=== PATIENT | female | born 1990 | race American Indian/Alaskan Native ===

== ENCOUNTER 2019-08-24 12:36 | Inpatient (IN) | payer SELFPAY ==
[2019-08-24] MEDS ORDERED: ONDANSETRON 4 MG ODT TAB PO ONE (12:59)
[2019-08-24 13:21] LABS: Bilirubin,Urine NEG (Negative); Blood,Urine SM (Negative); Color,Urine Colorless (Yellow); Mucus,Urine FEW /HPF; Protein,Urine <15 mg/dL mg/dL (Negative); Urobilinogen,Urine < 2.0 mg/dL (<2.0); WBC,Urine < 1.0 /HPF (0.0-6.0)
[2019-08-24 13:23] LABS: HCG Qualitative,Urine Negative (Negative)
[2019-08-24] MEDS ORDERED: ONDANSETRON 4 MG/2 ML INJ IV ONE (13:36)
[2019-08-24] MEDS ORDERED: FAMOTIDINE 20 MG/2 ML INJ IV ONE (13:36)
[2019-08-24] MEDS ORDERED: SODIUM CHLORIDE 0.9% 1000 ML 1,000 ML IV ONE ×2 (13:36→14:50)
[2019-08-24 14:00] LABS: Basophils # (Auto) 0.1 K/mm3 (0.0-0.1); Basophils % (Auto) 0.5 % (0.0-1.8); Eosinophils % (Auto) 0.2 % (0.0-4.3); Hematocrit 44.7 % (30.3-42.9); Hemoglobin 14.5 gm/dl (10.1-14.3); Lymphocytes # (Auto) 1.8 K/mm3 (1.2-5.4); Lymphocytes % (Auto) 17.4 % (13.4-35.0); Mean Corpuscular HGB Conc 32 % (30-34); Mean Corpuscular Volume 84 fl (79-97); Monocytes # (Auto) 0.6 K/mm3 (0.0-0.8); Platelet Count 379 K/mm3 (140-440); Red Blood Count 5.35 M/mm3 (3.65-5.03); Red Cell Distribution Width 14.1 % (13.2-15.2)
[2019-08-24 14:19] LABS: Alanine Aminotransferase 24 units/L (7-56); Albumin 4.5 g/dL (3.9-5); BUN/Creatinine Ratio 16; Blood Urea Nitrogen 14 mg/dL (7-17); Calcium 9.9 mg/dL (8.4-10.2); Hemolysis Index 9
[2019-08-24] MEDS ORDERED: DEXTROSE 50% IN WATER (25GM) 50 ML SYRINGE IV PRN ×2 (14:50→22:05)
[2019-08-24] MEDS ORDERED: INSULIN REGULAR, HUMAN 100 UNITS in SODIUM CHLORIDE 0.9% 99 ML IV SCH ×2 (15:00→23:00)
--- NOTE | 2019-08-24 15:25 | Emergency Department Report ---
ED General Adult HPI - General Chief complaint: Urogenital-Female Stated complaint: DEHYDRATED/URINARY FREQUENCY Time Seen by Provider: 08/24/19 13:34 Source: patient Mode of arrival: Ambulatory Limitations: No Limitations - History of Present Illness Initial comments: Patient is a 29-year-old F [place] female who states she had gestational diabetes but otherwise has no no past medical problems who is complaining of some increased thirst and urination for approximately a week. Patient denies nausea vomiting diarrhea but does have some generalized abdominal cramps. Patient has had increased thirst. Patient was diagnosed a week ago with a mild UTI was prescribed Macrobid but states she has not been using it because of being nauseous after taking that medication. Patient states she has some dizziness as well. She denies fever cough congestion sore throat at this time. - Related Data Allergies Allergy/AdvReac Type Severity Reaction Status Date / Time No Known Allergies Allergy Verified 08/24/19 12:45 ED Review of Systems ROS: Stated complaint: DEHYDRATED/URINARY FREQUENCY Other details as noted in HPI Comment: All other systems reviewed and negative ED Past Medical Hx - Past Medical History Previous Medical History?: No - Surgical History Past Surgical History?: Yes Additional Surgical History: , tubal ligation - Social History Smoking Status: Never Smoker Substance Use Type: None ED Physical Exam - General Limitations: No Limitations General appearance: alert, in no apparent distress - Head Head exam: Present: atraumatic, normocephalic - Eye Eye exam: Present: normal appearance, PERRL, EOMI - ENT ENT exam: Present: mucous membranes moist - Neck Neck exam: Present: normal inspection - Respiratory Respiratory exam: Present: normal lung sounds bilaterally. Absent: respiratory distress, wheezes, rales, rhonchi - Cardiovascular Cardiovascular Exam: Present: regular rate, normal rhythm. Absent: systolic murmur, diastolic murmur, rubs, gallop - GI/Abdominal GI/Abdominal exam: Present: soft, normal bowel sounds. Absent: distended, tenderness, guarding, rebound - Extremities Exam Extremities exam: Present: normal inspection - Back Exam Back exam: Present: normal inspection - Neurological Exam Neurological exam: Present: alert, oriented X3 - Psychiatric Psychiatric exam: Present: normal affect, normal mood - Skin Skin exam: Present: warm, dry, intact, normal color. Absent: rash ED Course Vital Signs 08/24/19 12:45 Temperature 98.1 F Pulse Rate 104 H Respiratory 22 Rate Blood Pressure 149/93 O2 Sat by Pulse 100 Oximetry ED Medical Decision Making - Lab Data Result diagrams: 08/24/19 13:40 08/24/19 13:40 Lab Results 08/24/19 08/24/19 08/24/19 Range/Units 13:03 13:10 13:33 WBC (4.5-11.0) K/mm3 RBC (3.65-5.03) M/mm3 Hgb (10.1-14.3) gm/dl Hct (30.3-42.9) % MCV (79-97) fl MCH (28-32) pg MCHC (30-34) % RDW (13.2-15.2) % Plt Count (140-440) K/mm3 Lymph % (Auto) (13.4-35.0) % [place] % (Auto) (0.0-7.3) % Eos % (Auto) (0.0-4.3) % Baso % (Auto) (0.0-1.8) % Lymph # (1.2-5.4) K/mm3 [place] # (0.0-0.8) K/mm3 Eos # (0.0-0.4) K/mm3 Baso # (0.0-0.1) K/mm3 Seg Neutrophils % (40.0-70.0) % Seg Neutrophils # (1.8-7.7) K/mm3 VBG pH 7.146 L* (7.320-7.420) Sodium (137-145) mmol/L Potassium (3.6-5.0) mmol/L Chloride (98-107) mmol/L Carbon Dioxide (22-30) mmol/L Anion Gap mmol/L BUN (7-17) mg/dL Creatinine (0.7-1.2) mg/dL Estimated GFR ml/min BUN/Creatinine Ratio % Glucose (65-100) mg/dL POC Glucose > 500 H (70-105) Ketones Quantitative (Negative) Calcium (8.4-10.2) mg/dL Total Bilirubin (0.1-1.2) mg/dL AST (5-40) units/L ALT (7-56) units/L Alkaline Phosphatase (35-129) units/L Total Protein (6.3-8.2) g/dL Albumin (3.9-5) g/dL Albumin/Globulin Ratio % Urine Color Colorless (Yellow) Urine Turbidity Clear (Clear) Urine pH 5.0 (5.0-7.0) Ur Specific [place] 1.029 (1.003-1.030) Urine Protein <15 mg/dl (Negative) mg/dL Urine Glucose (UA) >=500 (Negative) mg/dL Urine Ketones 80 (Negative) mg/dL Urine Blood Sm (Negative) Urine Nitrite Neg (Negative) Urine Bilirubin Neg (Negative) Urine Urobilinogen < 2.0 (<2.0) mg/dL Ur Leukocyte Esterase Neg (Negative) Urine WBC (Auto) < 1.0 (0.0-6.0) /HPF Urine RBC (Auto) 1.0 (0.0-6.0) /HPF U Epithel Cells (Auto) < 1.0 (0-13.0) /HPF Urine Mucus Few /HPF Urine HCG, Qual Negative (Negative) 08/24/19 08/24/19 Range/Units 13:40 13:40 WBC 10.3 (4.5-11.0) K/mm3 RBC 5.35 H (3.65-5.03) M/mm3 Hgb 14.5 H (10.1-14.3) gm/dl Hct 44.7 H (30.3-42.9) % MCV 84 (79-97) fl MCH 27 L (28-32) pg MCHC 32 (30-34) % RDW 14.1 (13.2-15.2) % Plt Count 379 (140-440) K/mm3 Lymph % (Auto) 17.4 (13.4-35.0) % [place] % (Auto) 6.0 (0.0-7.3) % Eos % (Auto) 0.2 (0.0-4.3) % Baso % (Auto) 0.5 (0.0-1.8) % Lymph # 1.8 (1.2-5.4) K/mm3 [place] # 0.6 (0.0-0.8) K/mm3 Eos # 0.0 (0.0-0.4) K/mm3 Baso # 0.1 (0.0-0.1) K/mm3 Seg Neutrophils % 75.9 H (40.0-70.0) % Seg Neutrophils # 7.8 H (1.8-7.7) K/mm3 VBG pH (7.320-7.420) Sodium 132 L (137-145) mmol/L Potassium 4.1 (3.6-5.0) mmol/L Chloride 97.0 L (98-107) mmol/L Carbon Dioxide 12 L (22-30) mmol/L Anion Gap 27 mmol/L BUN 14 (7-17) mg/dL Creatinine 0.9 (0.7-1.2) mg/dL Estimated GFR > 60 ml/min BUN/Creatinine Ratio 16 % Glucose 625 H* (65-100) mg/dL POC Glucose (70-105) Ketones Quantitative Large (Negative) Calcium 9.9 (8.4-10.2) mg/dL Total Bilirubin 0.30 (0.1-1.2) mg/dL AST 13 (5-40) units/L ALT 24 (7-56) units/L Alkaline Phosphatase 118 (35-129) units/L Total Protein 9.0 H (6.3-8.2) g/dL Albumin 4.5 (3.9-5) g/dL Albumin/Globulin Ratio 1.0 % Urine Color (Yellow) Urine Turbidity (Clear) Urine pH (5.0-7.0) Ur Specific [place] (1.003-1.030) Urine Protein (Negative) mg/dL Urine Glucose (UA) (Negative) mg/dL Urine Ketones (Negative) mg/dL Urine Blood (Negative) Urine Nitrite (Negative) Urine Bilirubin (Negative) Urine Urobilinogen (<2.0) mg/dL Ur Leukocyte Esterase (Negative) Urine WBC (Auto) (0.0-6.0) /HPF Urine RBC (Auto) (0.0-6.0) /HPF U Epithel Cells (Auto) (0-13.0) /HPF Urine Mucus /HPF Urine HCG, Qual (Negative) - Medical Decision Making Patient's laboratory studies showed the patient is acidotic. Blood glucose is 625. Patient appears to have new onset diabetes with early DKA. Patient star amadou on fluids and insulin drip. Critical care attestation.: If time is entered above; I have spent that time in minutes in the direct care of this critically ill patient, excluding procedure time. ED Disposition Clinical Impression: Diabetes mellitus, new onset DKA (diabetic ketoacidoses) Qualifiers: Diabetes mellitus type: other specified (including BOB) Diabetes mellitus complication detail: without coma Qualified Code(s): E13.10 - Other specified diabetes mellitus with ketoacidosis without coma Disposition: OP ADMIT IP TO THIS HOSP Is pt being admited?: Yes Does the pt Need Aspirin: No Condition: Stable Time of Disposition: 15:27
[2019-08-24 16:50] LABS: BUN/Creatinine Ratio 16; Blood Urea Nitrogen 13 mg/dL (7-17); Calcium 8.6 mg/dL (8.4-10.2); Hemolysis Index 123
--- NOTE | 2019-08-24 17:19 | History and Physical Report ---
History of Present Illness Date of examination: 08/24/19 Date of admission: 08/24/19 15:28 Chief complaint: Generalized weakness and polyuria and excessive thirst for 1 week History of present illness: 29-year-old female with history of gestational diabetes but no diabetes on a regular basis complains of increasing thirst and polyuria. No nausea vomiting or diarrhea. Patient has generalized weakness. And blurred vision. Patient had a UTI recently and was prescribed Macrobid. In the emergency room patient was found to have high blood glucose levels uncontrolled hence admission. No fever or chills. Past Medical History Previous Medical History?: No Surgical History Past Surgical History?: Yes Additional Surgical History: , tubal ligation Social History Smoking Status: Never Smoker Substance Use Type: None family history HTN Review of Systems ROS: Constitutional no weight loss or weight gain no fever or chills Generalized weakness polyuria polydipsia and polyphagia HEENT no sore throat no post nasal drip no diplopia Neck no neck stiffness no lymph gland enlargement Chest and lungs no shortness of breath cough or wheezing CVS no chest pain no diaphoresis no palpitations GI no nausea no vomiting no diarrhea Genitourinary system no dysuria no flank pain Musculoskeletal system no muscle pains no joint pains [employer] no syncope no seizures Skin no rash no itching Psychiatric no depression no homicidal or suicidal tendencies Hematologic no lymphedema or bruising Endocrine polydipsia polyphagia and polyuria Medications and Allergies Allergies Allergy/AdvReac Type Severity Reaction Status Date / Time No Known Allergies Allergy Verified 08/24/19 12:45 Home Medications Medication Instructions Recorded Confirmed Last Taken Type No Known Home Medications [No 08/24/19 08/24/19 Unknown History Reported Home Medications] Active Meds: Active Medications Dextrose (D50w (25gm) Syringe) 0 ml IV Q30MIN PRN; Protocol PRN Reason: Hypoglycemia Insulin Human Regular 100 (units/ Sodium Chloride) 100 mls @ 1 mls/hr IV TITR YAEL; Protocol Last Titration: 08/24/19 16:29 Dose: 7 units/hr, 7 mls/hr Documented by: Potassium Chloride/Dextrose/Sod Cl (D5w/0.45% Nacl/Kcl 20 Meq) 20 meq in 1,000 mls @ 125 mls/hr IV DIRECT YAEL Exam - Constitutional Vitals: Temp Pulse Resp BP Pulse Ox 98.1 F 104 H 22 131/72 99 08/24/19 12:45 08/24/19 12:45 08/24/19 12:45 08/24/19 15:45 08/24/19 15:45 General appearance: Present: no acute distress, well-nourished - EENT Eyes: Present: PERRL ENT: hearing intact, clear oral mucosa - Neck Neck: Present: supple, normal ROM - Respiratory Respiratory effort: normal Respiratory: bilateral: CTA - Cardiovascular Heart Sounds: Present: S1 & S2. Absent: rub, click - Extremities Extremities: pulses symmetrical, No edema Peripheral Pulses: within normal limits - Abdominal General gastrointestinal: Present: soft, non-tender, non-distended, normal bowel sounds Female genitourinary: Present: normal - Integumentary Integumentary: Present: clear, warm, dry - Musculoskeletal Musculoskeletal: gait normal, strength equal bilaterally - Psychiatric Psychiatric: appropriate mood/affect, intact judgment & insight - Neurologic Neurologic: CNII-XII intact, moves all extremities - Allied Health Allied health notes reviewed: nursing, case management Results - Labs CBC & Chem 7: 08/25/19 02:27 08/25/19 15:21 Labs: Laboratory Last Values WBC 10.3 K/mm3 (4.5-11.0) 08/24/19 13:40 RBC 5.35 M/mm3 (3.65-5.03) H 08/24/19 13:40 Hgb 14.5 gm/dl (10.1-14.3) H 08/24/19 13:40 Hct 44.7 % (30.3-42.9) H 08/24/19 13:40 MCV 84 fl (79-97) 08/24/19 13:40 MCH 27 pg (28-32) L 08/24/19 13:40 MCHC 32 % (30-34) 08/24/19 13:40 RDW 14.1 % (13.2-15.2) 08/24/19 13:40 Plt Count 379 K/mm3 (140-440) 08/24/19 13:40 Lymph % (Auto) 17.4 % (13.4-35.0) 08/24/19 13:40 [place] % (Auto) 6.0 % (0.0-7.3) 08/24/19 13:40 Eos % (Auto) 0.2 % (0.0-4.3) 08/24/19 13:40 Baso % (Auto) 0.5 % (0.0-1.8) 08/24/19 13:40 Lymph # 1.8 K/mm3 (1.2-5.4) 08/24/19 13:40 [place] # 0.6 K/mm3 (0.0-0.8) 08/24/19 13:40 Eos # 0.0 K/mm3 (0.0-0.4) 08/24/19 13:40 Baso # 0.1 K/mm3 (0.0-0.1) 08/24/19 13:40 Seg Neutrophils % 75.9 % (40.0-70.0) H 08/24/19 13:40 Seg Neutrophils # 7.8 K/mm3 (1.8-7.7) H 08/24/19 13:40 VBG pH 7.146 (7.320-7.420) L* 08/24/19 13:33 Sodium 135 mmol/L (137-145) L 08/24/19 15:42 Potassium 5.0 mmol/L (3.6-5.0) D 08/24/19 15:42 Chloride 102.4 mmol/L (98-107) 08/24/19 15:42 Carbon Dioxide 11 mmol/L (22-30) L 08/24/19 15:42 Anion Gap 27 mmol/L 08/24/19 15:42 BUN 13 mg/dL (7-17) 08/24/19 15:42 Creatinine 0.8 mg/dL (0.7-1.2) 08/24/19 15:42 Estimated GFR > 60 ml/min 08/24/19 15:42 BUN/Creatinine Ratio 16 % 08/24/19 15:42 Glucose 450 mg/dL (65-100) H 08/24/19 15:42 POC Glucose 357 (70-105) H 08/24/19 16:40 Ketones Quantitative Large (Negative) 08/24/19 13:40 Calcium 8.6 mg/dL (8.4-10.2) 08/24/19 15:42 Phosphorus 3.20 mg/dL (2.5-4.5) 08/24/19 15:42 Magnesium 1.90 mg/dL (1.7-2.3) 08/24/19 15:42 Total Bilirubin 0.30 mg/dL (0.1-1.2) 08/24/19 13:40 AST 13 units/L (5-40) 08/24/19 13:40 ALT 24 units/L (7-56) 08/24/19 13:40 Alkaline Phosphatase 118 units/L (35-129) 08/24/19 13:40 Total Protein 9.0 g/dL (6.3-8.2) H 08/24/19 13:40 Albumin 4.5 g/dL (3.9-5) 08/24/19 13:40 Albumin/Globulin Ratio 1.0 % 08/24/19 13:40 Urine Color Colorless (Yellow) 08/24/19 13:10 Urine Turbidity Clear (Clear) 08/24/19 13:10 Urine pH 5.0 (5.0-7.0) 08/24/19 13:10 Ur Specific [place] 1.029 (1.003-1.030) 08/24/19 13:10 Urine Protein <15 mg/dl mg/dL (Negative) 08/24/19 13:10 Urine Glucose (UA) >=500 mg/dL (Negative) 08/24/19 13:10 Urine Ketones 80 mg/dL (Negative) 08/24/19 13:10 Urine Blood Sm (Negative) 08/24/19 13:10 Urine Nitrite Neg (Negative) 08/24/19 13:10 Urine Bilirubin Neg (Negative) 08/24/19 13:10 Urine Urobilinogen < 2.0 mg/dL (<2.0) 08/24/19 13:10 Ur Leukocyte Esterase Neg (Negative) 08/24/19 13:10 Urine WBC (Auto) < 1.0 /HPF (0.0-6.0) 08/24/19 13:10 Urine RBC (Auto) 1.0 /HPF (0.0-6.0) 08/24/19 13:10 U Epithel Cells (Auto) < 1.0 /HPF (0-13.0) 08/24/19 13:10 Urine Mucus Few /HPF 08/24/19 13:10 Urine HCG, Qual Negative (Negative) 08/24/19 13:10 [place]/IV: IV Catheter Type [Right INT / Saline Lock Forearm] Assessment and Plan Advance Directives: Yes (Full code) VTE prophylaxis?: Chemical Plan of care discussed with patient/family: Yes - Patient Problems (1) Uncontrolled diabetes mellitus Current Visit: Yes Status: Acute Qualifiers: Diabetes mellitus type: other specified (including BOB) Plan to address problem: New onset IV fluids Frequent Accu-Cheks High-dose sliding scale Initiated on insulin 70/30 20 units twice a day Diabetes education (2) Hyponatremia Current Visit: Yes Status: Acute Plan to address problem: Should correct with IV fluids (3) DVT prophylaxis Current Visit: Yes Status: Acute Plan to address problem: On heparin and GI prophylaxis
[2019-08-24] MEDS ORDERED: D5W/0.45% NACL/KCL 20 MEQ 20 MEQ/1,000 ML BAG IV ONE (19:37)
[2019-08-24] MEDS: D5W/0.45% NACL/KCL 20 MEQ 20 MEQ/1,000 ML BAG IV SCH (19:37)
[2019-08-24 20:22] LABS: BUN/Creatinine Ratio 14; Blood Urea Nitrogen 11 mg/dL (7-17); Calcium 8.8 mg/dL (8.4-10.2); Hemolysis Index 13
[2019-08-24] MEDS ORDERED: ONDANSETRON 4 MG/2 ML INJ IV PRN (22:04)
[2019-08-24] MEDS ORDERED: HYDROmorphone 1 MG/1 ML INJ IV PRN (22:04)
[2019-08-24] MEDS ORDERED: ACETAMINOPHEN 325 MG TAB PO PRN (22:04)
[2019-08-24] MEDS ORDERED: MORPHINE 2 MG/1 ML INJ IV PRN (22:04)
[2019-08-24] MEDS ORDERED: POTASSIUM CHLORIDE 10 MEQ 10 MEQ/100 ML BAG IV SCH ×2 (23:00)
[2019-08-25 00:15] LABS: BUN/Creatinine Ratio 13; Blood Urea Nitrogen 9 mg/dL (7-17); Calcium 8.5 mg/dL (8.4-10.2); Hemolysis Index 12
[2019-08-25 02:53] LABS: Basophils % (Auto) 0.6 % (0.0-1.8); Eosinophils # (Auto) 0.1 K/mm3 (0.0-0.4); Eosinophils % (Auto) 1.3 % (0.0-4.3); Hematocrit 38.3 % (30.3-42.9); Hemoglobin 12.5 gm/dl (10.1-14.3); Lymphocytes # (Auto) 2.8 K/mm3 (1.2-5.4); Mean Corpuscular HGB Conc 33 % (30-34); Mean Corpuscular Volume 82 fl (79-97); Monocytes # (Auto) 0.7 K/mm3 (0.0-0.8); Monocytes % (Auto) 8.3 % (0.0-7.3); Platelet Count 297 K/mm3 (140-440); Red Blood Count 4.66 M/mm3 (3.65-5.03); Red Cell Distribution Width 13.7 % (13.2-15.2)
[2019-08-25 03:12] LABS: BUN/Creatinine Ratio 11; Blood Urea Nitrogen 8 mg/dL (7-17); Calcium 8.1 mg/dL (8.4-10.2); Hemolysis Index 4
[2019-08-25 03:13] LABS: Alanine Aminotransferase 18 units/L (7-56); Albumin 3.9 g/dL (3.9-5); BUN/Creatinine Ratio 11; Blood Urea Nitrogen 8 mg/dL (7-17); Calcium 8.1 mg/dL (8.4-10.2); Hemolysis Index 47
[2019-08-25] MEDS: D5W/0.45% NACL/KCL 20 MEQ 20 MEQ/1,000 ML BAG IV SCH (03:20)
[2019-08-25 05:56] LABS: BUN/Creatinine Ratio 10; Blood Urea Nitrogen 7 mg/dL (7-17); Calcium 7.9 mg/dL (8.4-10.2); Hemolysis Index 16
[2019-08-25 07:52] LABS: BUN/Creatinine Ratio 10; Blood Urea Nitrogen 7 mg/dL (7-17); Hemolysis Index 15
[2019-08-25] MEDS ORDERED: POTASSIUM CHLORIDE ER 20 MEQ TAB PO ONE (08:00)
[2019-08-25] MEDS ORDERED: DEXTROSE 50% IN WATER (25GM) 50 ML SYRINGE IV PRN (11:27)
[2019-08-25] MEDS ORDERED: INSULIN NPH, HUMAN 100 UNIT/1 ML SUB-Q ONE (12:00)
[2019-08-25] MEDS: INSULIN REGULAR, HUMAN 100 UNITS/1 ML SUB-Q SCH ×2 (12:34→17:43)
[2019-08-25 16:07] LABS: BUN/Creatinine Ratio 9; Blood Urea Nitrogen 8 mg/dL (7-17); Calcium 8.6 mg/dL (8.4-10.2); Hemolysis Index 10
[2019-08-25] MEDS: INSULIN NPH, HUMAN 100 UNIT/1 ML SUB-Q SCH (17:43)
--- NOTE | 2019-08-25 20:12 | Progress Note ---
Assessment and Plan - Patient Problems (1) Uncontrolled diabetes mellitus Current Visit: Yes Status: Acute Qualifiers: Diabetes mellitus type: other specified (including BOB) Plan to address problem: New onset IV fluids Frequent Accu-Cheks High-dose sliding scale Initiated on insulin 70/30 20 units twice a day Diabetes education (2) Hyponatremia Current Visit: Yes Status: Acute Plan to address problem: Should correct with IV fluids (3) DVT prophylaxis Current Visit: Yes Status: Acute Plan to address problem: On heparin and GI prophylaxis Subjective Date of service: 08/25/19 Principal diagnosis: New onset diabetes and uncontrolled diabetes Interval history: Symptomatically better Objective - Constitutional Vitals: Vital Signs - 12hr 08/25/19 08/25/19 08/25/19 09:00 10:00 11:01 Temperature Pulse Rate 103 H 98 H 102 H Pulse Rate [ From Monitor] Respiratory 24 22 27 H Rate Blood Pressure 118/64 90/55 90/55 O2 Sat by Pulse 100 100 100 Oximetry 08/25/19 08/25/19 08/25/19 12:00 12:01 13:01 Temperature Pulse Rate 94 H 98 H 100 H Pulse Rate [ 86 From Monitor] Respiratory 20 24 26 H Rate Blood Pressure 90/55 O2 Sat by Pulse 100 100 100 Oximetry 08/25/19 15:38 Temperature 98.4 F Pulse Rate 101 H Pulse Rate [ From Monitor] Respiratory 20 Rate Blood Pressure 109/63 O2 Sat by Pulse 100 Oximetry General appearance: Present: no acute distress, well-nourished - EENT Eyes: PERRL, EOM intact ENT: hearing intact, clear oral mucosa Ears: bilateral: normal - Neck Neck: supple, normal ROM - Respiratory Respiratory effort: normal Respiratory: bilateral: CTA - Breasts Breasts: normal - Cardiovascular Rhythm: regular Heart Sounds: Present: S1 & S2. Absent: gallop, rub Extremities: pulses intact, No edema, normal color, Full ROM - Gastrointestinal General gastrointestinal: Present: soft, non-tender, non-distended, normal bowel sounds - Genitourinary Female genitourinary: normal - Integumentary Integumentary: clear, warm, dry - Musculoskeletal Musculoskeletal: 1, strength equal bilaterally - Neurologic Neurologic: moves all extremities - Psychiatric Psychiatric: memory intact, appropriate mood/affect, intact judgment & insight - Labs CBC & Chem 7: 08/25/19 02:27 08/25/19 15:21 Labs: Abnormal lab results 08/24/19 08/24/19 08/24/19 Range/Units 19:48 21:04 22:23 MCH (28-32) pg [place] % (Auto) (0.0-7.3) % Sodium 136 L (137-145) mmol/L Potassium (3.6-5.0) mmol/L Carbon Dioxide 13 L (22-30) mmol/L Glucose 220 H (65-100) mg/dL POC Glucose 182 H 210 H (70-105) Hemoglobin A1c (4-6) % Calcium (8.4-10.2) mg/dL Phosphorus (2.5-4.5) mg/dL 08/24/19 08/24/19 08/24/19 Range/Units 23:15 23:32 23:32 MCH (28-32) pg [place] % (Auto) (0.0-7.3) % Sodium (137-145) mmol/L Potassium (3.6-5.0) mmol/L Carbon Dioxide 14 L (22-30) mmol/L Glucose 198 H (65-100) mg/dL POC Glucose 204 H (70-105) Hemoglobin A1c 9.7 H (4-6) % Calcium (8.4-10.2) mg/dL Phosphorus (2.5-4.5) mg/dL 08/24/19 08/25/19 08/25/19 Range/Units 23:32 00:14 01:19 MCH (28-32) pg [place] % (Auto) (0.0-7.3) % Sodium (137-145) mmol/L Potassium (3.6-5.0) mmol/L Carbon Dioxide (22-30) mmol/L Glucose (65-100) mg/dL POC Glucose 202 H 190 H (70-105) Hemoglobin A1c (4-6) % Calcium (8.4-10.2) mg/dL Phosphorus 1.60 L D (2.5-4.5) mg/dL 08/25/19 08/25/19 08/25/19 Range/Units 02:22 02:27 02:27 MCH 27 L (28-32) pg [place] % (Auto) 8.3 H (0.0-7.3) % Sodium 135 L (137-145) mmol/L Potassium 3.3 L (3.6-5.0) mmol/L Carbon Dioxide 15 L (22-30) mmol/L Glucose 206 H (65-100) mg/dL POC Glucose 182 H (70-105) Hemoglobin A1c (4-6) % Calcium 8.1 L (8.4-10.2) mg/dL Phosphorus (2.5-4.5) mg/dL 08/25/19 08/25/19 08/25/19 Range/Units 02:27 03:18 04:22 MCH (28-32) pg [place] % (Auto) (0.0-7.3) % Sodium 135 L (137-145) mmol/L Potassium (3.6-5.0) mmol/L Carbon Dioxide 14 L (22-30) mmol/L Glucose 204 H (65-100) mg/dL POC Glucose 209 H 177 H (70-105) Hemoglobin A1c (4-6) % Calcium 8.1 L (8.4-10.2) mg/dL Phosphorus (2.5-4.5) mg/dL 08/25/19 08/25/19 08/25/19 Range/Units 05:02 05:26 06:08 MCH (28-32) pg [place] % (Auto) (0.0-7.3) % Sodium 134 L (137-145) mmol/L Potassium 3.2 L (3.6-5.0) mmol/L Carbon Dioxide 17 L (22-30) mmol/L Glucose 186 H (65-100) mg/dL POC Glucose 168 H 179 H (70-105) Hemoglobin A1c (4-6) % Calcium 7.9 L (8.4-10.2) mg/dL Phosphorus (2.5-4.5) mg/dL 08/25/19 08/25/19 08/25/19 Range/Units 07:11 07:12 08:30 MCH (28-32) pg [place] % (Auto) (0.0-7.3) % Sodium 136 L (137-145) mmol/L Potassium 3.5 L (3.6-5.0) mmol/L Carbon Dioxide 16 L (22-30) mmol/L Glucose 193 H (65-100) mg/dL POC Glucose 192 H 141 H (70-105) Hemoglobin A1c (4-6) % Calcium 8.0 L (8.4-10.2) mg/dL Phosphorus (2.5-4.5) mg/dL 08/25/19 08/25/19 08/25/19 Range/Units 09:25 10:25 11:31 MCH (28-32) pg [place] % (Auto) (0.0-7.3) % Sodium (137-145) mmol/L Potassium (3.6-5.0) mmol/L Carbon Dioxide (22-30) mmol/L Glucose (65-100) mg/dL POC Glucose 141 H 170 H 178 H (70-105) Hemoglobin A1c (4-6) % Calcium (8.4-10.2) mg/dL Phosphorus (2.5-4.5) mg/dL 08/25/19 08/25/19 Range/Units 15:21 16:57 MCH (28-32) pg [place] % (Auto) (0.0-7.3) % Sodium 135 L (137-145) mmol/L Potassium (3.6-5.0) mmol/L Carbon Dioxide 17 L (22-30) mmol/L Glucose 352 H (65-100) mg/dL POC Glucose 304 H (70-105) Hemoglobin A1c (4-6) % Calcium (8.4-10.2) mg/dL Phosphorus (2.5-4.5) mg/dL
[2019-08-25] MEDS: INSULIN LISPRO 100 UNIT/ML SUB-Q SCH (22:22)
[2019-08-25 23:17] LABS: BUN/Creatinine Ratio 11; Blood Urea Nitrogen 9 mg/dL (7-17); Calcium 8.5 mg/dL (8.4-10.2); Hemolysis Index 10
[2019-08-26] MEDS: INSULIN REGULAR, HUMAN 100 UNITS/1 ML SUB-Q SCH (03:14)
[2019-08-26] MEDS: INSULIN LISPRO 100 UNIT/ML SUB-Q SCH ×3 (09:16→18:07)
[2019-08-26] MEDS: INSULIN NPH, HUMAN 100 UNIT/1 ML SUB-Q SCH ×2 (09:33→18:08)
[2019-08-26 16:39] VITALS: BP 129/75
--- NOTE | 2019-08-26 17:54 | Discharge Summary ---
Providers - Providers Date of Admission: 08/24/19 15:28 Date of discharge: 08/26/19 Attending physician: ALISHA Boswell.A Primary care physician: NENA RUCKER MD Hospitalization Condition: Stable Hospital course: Patient is admitted for DKA. Was on DKA protocol and IV insulin and IV fluids. Patient responded well patient was educated about diabetes or administering insulin. And out adjust dosage. Patient has to lose weight. (1) DKA Current Visit: Yes Status: Acute Qualifiers: Diabetes mellitus type: other specified (including BOB) Plan to address problem: New onset IV fluids Frequent Accu-Cheks High-dose sliding scale Being discharged on on insulin 70/30 30 units twice a day Diabetes education (2) Hyponatremia Current Visit: Yes Status: Acute Plan to address problem: Corrected patient ( 3.)Morbid obesity counseled to lose weight and see bariatric surgeon because her BMI is around 55 Disposition: DC-01 TO HOME OR SELFCARE Core Measure Documentation - Palliative Care Palliative Care/ Comfort Measures: Not Applicable - Core Measures Any of the following diagnoses?: none Exam - Constitutional Vitals: Temp Pulse Resp BP Pulse Ox 98.2 F 102 H 18 129/75 99 08/26/19 14:37 08/26/19 14:37 08/26/19 14:37 08/26/19 14:37 08/26/19 14:37 General appearance: Present: no acute distress, well-nourished - EENT Eyes: Present: PERRL ENT: hearing intact, clear oral mucosa - Neck Neck: Present: supple, normal ROM - Respiratory Respiratory effort: normal Respiratory: bilateral: CTA - Cardiovascular Heart Sounds: Present: S1 & S2. Absent: rub, click - Extremities Extremities: pulses symmetrical, No edema Peripheral Pulses: within normal limits - Abdominal General gastrointestinal: Present: soft, non-tender, non-distended, normal bowel sounds Female genitourinary: Present: normal - Integumentary Integumentary: Present: clear, warm, dry - Musculoskeletal Musculoskeletal: gait normal, strength equal bilaterally - Psychiatric Psychiatric: appropriate mood/affect, intact judgment & insight - Neurologic Neurologic: CNII-XII intact, moves all extremities Plan Activity: no restrictions Diet: diabetic Follow up with: NENA RUCKER MD [Primary Care Provider] - 7 Days ROBERTA RUSSO MD [Staff Physician] - 7 Days
== END 2019-08-26 19:30 | disposition home or self-care (01) | DRG 638 ==
LOC: ED 12:36 → CC1 15:28 → 2B-ACE 08-25 15:06
PROVIDERS: ADMIT Internal Medicine; ATTEND Internal Medicine
DX: E13.10 Other specified diabetes mellitus with ketoacidosis without coma (principal); E87.1 Hypo-osmolality and hyponatremia; Z68.43 Body mass index [BMI] 50.0-59.9, adult; E66.01 Morbid (severe) obesity due to excess calories; E86.0 Dehydration; Z98.51 Tubal ligation status; Z79.899 Other long term (current) drug therapy
CPT/HCPCS: 36415; 80048; 80053; 81001; 81025; 82010; 82805; 82962; 83036; 83735; 84100; 85025; G0378; J1815; J7030; Q0162